=== PATIENT | male | born 1935 | race Caucasian/White ===

== ENCOUNTER 2018-01-10 06:41 | Emergency (ER) | payer MEDICARE, MEDICAID ==
[~2018-01-10] VITALS: Ht 170.2 cm; Wt 68.0 kg
[2018-01-10 06:45] VITALS: BP_SYST 123
[2018-01-10] MEDS ORDERED: MAGNESIUM CITRATE 300 ML ORAL SOLUTION PO ONE (07:15)
[2018-01-10 08:05] VITALS: BP_SYST 114
[2018-01-13] MEDS ORDERED: TAMS-11 PO (06:10)
[2018-01-13] MEDS ORDERED: ASCO500T20 PO (06:10)
[2018-01-13] MEDS ORDERED: LEVO25TA58 PO (06:10)
[2018-01-13] MEDS ORDERED: ACET-1010 PO (06:10)
[2018-01-13] MEDS ORDERED: HYDR-1189 PO (06:10)
[2018-01-13] MEDS ORDERED: OXCA150T5 PO (06:10)
[2018-01-13] MEDS ORDERED: FAMO20TA8 PO (06:10)
[2018-01-13] MEDS ORDERED: FERR-57 PO (06:10)
[2018-01-13] MEDS ORDERED: LEVE750T4 PO (06:10)
[2018-01-13] MEDS ORDERED: DIVA500T4 PO (06:10)
[2018-01-13] MEDS ORDERED: NA P118E RC (06:10)
[2018-01-13] MEDS ORDERED: [UNRECOGNIZED DRUG - CODE] PO (06:10)
[2018-01-13] MEDS ORDERED: MAGN296S30 PO (06:10)
== END 2018-01-10 08:05 | disposition home or self-care (01) ==
LOC: SED 06:41
DX: S70.02XA Contusion of left hip, initial encounter (principal); R03.0 Elevated blood-pressure reading, without diagnosis of hypertension; K21.9 Gastro-esophageal reflux disease without esophagitis; F03.90 Unspecified dementia, unspecified severity, without behavioral disturbance, psychotic disturbance, mood disturbance, and anxiety; Z79.899 Other long term (current) drug therapy; W19.XXXA Unspecified fall, initial encounter; Y93.89 Activity, other specified; Y92.091 Bathroom in other non-institutional residence as the place of occurrence of the external cause; Y99.8 Other external cause status
CPT/HCPCS: 73502; 99284